=== PATIENT | female | born 1985 | race African-American/Black ===

== ENCOUNTER → 2021-09-18 | Emergency (ER) | payer BC ==
[~2021-09-18] VITALS: Ht 175.3 cm; Wt 77.1 kg
[~2021-09-18] MED LIST: FLUORESCEIN SODIUM OPHTH 1 EA STRIP OP ONE; TETRACAINE HCL 0.5% OPHTALMIC 15 ML BOTTLE OP ONE
[2021-09-18 11:42] VITALS: BP 124/68
--- NOTE | 2021-09-18 11:43 | NUR ---
Patient discharged to home in stable condition. Written and verbal after care instructions given. Patient verbalizes understanding of instruction.
== END | disposition home or self-care (01) ==
LOC: ER 10:26
DX: Z77.098 Contact with and (suspected) exposure to other hazardous, chiefly nonmedicinal, chemicals (principal); H53.8 Other visual disturbances; H57.89 Other specified disorders of eye and adnexa